=== PATIENT | female | born 1990 | race Caucasian/White ===

== ENCOUNTER 2016-09-02 10:16 | Emergency (ER) | payer BC, MEDICAID ==
[~2016-09-02] VITALS: Ht 170.2 cm; Wt 66.0 kg
--- OUTSIDE RECORDS SUMMARY | 2016-09-02 10:21 | XMS REPORT | Continuity of Care Document ---
Author Author [facility] Organization [facility] Address Unknown Phone Unavailable Care Team Providers Care Strawhat Sizer Name Role Phone PCP Unavailable Source Comments Some departments are not documenting in the electronic medical record. If you do not see the information that you expected, contact Release of Information in the Health Information Management department at [phone] for further assistance in locating additional records.[facility] Active Allergies and Adverse Reactions Allergen Noted Date Severity Reactions Comments Amoxicillin 11/02/2005 Allergy recorded in SMS: Amoxicillin~Reactions: HIVES Current Medications Not on file Active Problems Not on file Social History Tobacco Use Types Packs/Day Years Used Date Never Assessed Plan of Care Health Maintenance Due Date Last Done Comments Physical (Comprehensive) 1997 Exam Hpv Vaccines (#1) 2001 Pertussis Vaccine 2001 Tetanus Vaccine 2007 Cervical Cancer Screening 2011 Influenza Vaccine 04/22/2016 Results from Last 3 Months Not on file
--- OUTSIDE RECORDS SUMMARY | 2016-09-02 10:27 | XMS REPORT | Continuity of Care Document ---
Author Author [facility] Organization [facility] Address Unknown Phone Unavailable Care Team Providers Care Office Chair Assembler Name Role Phone PCP Unavailable Source Comments Some departments are not documenting in the electronic medical record. If you do not see the information that you expected, contact Release of Information in the Health Information Management department at [phone] for further assistance in locating additional records.[facility] Active Allergies and Adverse Reactions Allergen Noted [...]
--- NOTE | 2016-09-02 10:32 | NUR ---
c collar taken off by cody boyle
--- NOTE | 2016-09-02 11:19 | Diagnostic Imaging Report ---
INDICATION: Fall with bump on left side of head. TECHNIQUE: Noncontrast brain CT is performed and compared with 02/02/2015. FINDINGS: There are postoperative changes in the skull with previous left-sided craniotomy and logan hole. There is no acute calvarial fracture or acute bony abnormality. Visualized portions of the sinuses and mastoid air cells are clear. There is no acute intracranial hemorrhage. There is dilatation of the left lateral ventricle with similar configuration and appearance compared to the prior study. 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 There is no new abnormality in the posterior fossa or right hemisphere. 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 No acute intracranial hemorrhage. There is volume loss in the left hemisphere with associated prominence of the left lateral ventricle. 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 Dictated by: Dictated on workstation # [id number]
[2016-09-02 12:38] VITALS: BP 127/68
== END 2016-09-02 12:58 | disposition home or self-care (01) ==
LOC: ED 10:23
DX: S00.83XA Contusion of other part of head, initial encounter (principal); W05.0XXA Fall from non-moving wheelchair, initial encounter; Y93.89 Activity, other specified; Y92.009 Unspecified place in unspecified non-institutional (private) residence as the place of occurrence of the external cause
CPT/HCPCS: 70450; 99283

== ENCOUNTER → 2016-09-02 | Outpatient (CLI) | payer BC, MEDICAID ==
[~2016-09-02] MED LIST: AC500T PO; ALEN70TA2 PO; ALEN70TA47 PO; BRIV50TA PO; CETI10TA20 PO; DEXT1DRO8 OP; DIAZ10TA3 RC; DIVA250T4 PO; DVL250TEC PO; DVL500TSR PO; FELB600 PO; HYDR-3702 PO; LACO200T2 PO; LACO50TA2 PO; LAMO150T3 PO; LANS30CA14 PO; MEDR150V IM; NF-FLON16G INH; OLOP2.5D OU; PHEN50TA PO; PHN100C PO; SENN-1 PO; SENN1TAB PO
== END ==
LOC: EMS 10:05
PROVIDERS: ATTEND Emergency Medicine
DX: M54.89 Other dorsalgia (principal); R51 Headache; W05.0XXA Fall from non-moving wheelchair, initial encounter